=== PATIENT | female | born 1975 | race Caucasian/White ===

== ENCOUNTER 2017-03-30 12:01 | Day surgery (SDC) | payer BC ==
[2017-03-30 12:37] VITALS: BMI 32.3
[2017-03-30] MEDS ORDERED: PROPOFOL 20 ML ONE ×2 (13:29→14:24)
[2017-03-30] MEDS ORDERED: MIDAZOLAM HCL 2 MG/2 ML SINGLE DOSE VIAL ONE ×2 (13:43→14:39)
[2017-03-30] MEDS ORDERED: CLINDAMYCIN PHOSPHATE 600 MG/4 ML VIAL ONE (14:37)
[2017-03-30] MEDS ORDERED: DEXAMETHASONE SOD PHOSPHATE 4 MG/1 ML VIAL ONE ×2 (14:41→14:53)
[2017-03-30] MEDS ORDERED: ONDANSETRON 4 MG/2 ML VIAL ONE ×2 (14:41→14:53)
[2017-03-30] MEDS ORDERED: ONDANSETRON 4 MG/2 ML VIAL IVPUSH PRN (15:42)
[2017-03-30] MEDS ORDERED: oxyCODONE HCL 5 MG TABLET PO PRN ×2 (15:42)
[2017-03-30] MEDS ORDERED: LACTATED RINGERS SOLUTION 1,000 ML IV SCH (15:45)
[2017-03-30] MEDS ORDERED: oxyCODONE HCL 5 MG TABLET ONE (16:30)
[2017-03-30 16:47] VITALS: BP 123/72; PULSE 74
[2017-03-30 16:52] VITALS: TEMP 98
--- NOTE | 2017-03-31 18:33 | OP ---
DATE OF OPERATION: 03/30/2017 PREOPERATIVE DIAGNOSIS: Left hand wound with possible ulnar nerve injury. POSTOPERATIVE DIAGNOSIS: Left hand wound with possible ulnar nerve injury. OPERATIVE PROCEDURE: Left hand wound exploration with decompression and exploration of left ulnar nerve and hand. SURGEON: Hansel Rosales MD BARKEEPER: STEPHANIE James ANESTHESIA: General. COMPLICATIONS: None. ESTIMATED BLOOD LOSS: Minimal. INDICATIONS FOR PROCEDURE: The patient is a 41-year-old female with the above finding, indicated for operative treatment. Risks, benefits, alternatives were discussed with patient at length. Proper informed consent was obtained. Of note, in the holding room, the patient was reexamined and found to have improved sensation in much of the finger except for the small finger, in which he had some diminished sensation over the ulnar aspect of the finger as well as in the palm of the hand distal to the laceration. Other areas had improved significantly. We discussed the options and she decided to proceed with exploration. PROCEDURE: After proper identification of patient and correct operative site, patient brought to the operating room, placed supine on the table, prominences well padded. General anesthesia provided by the anesthesiologist, adequate for procedure. Left upper extremity was prepped and draped in usual sterile fashion, well-padded tourniquet, and sterile prep. Esmarch bandage to exsanguinate left upper extremity. Tourniquet was inflated to 250 mmHg. Patient's laceration was enlarged both proximally and distally using a Noe type of zig-zag incision. The incision as taken sharply through the skin, with blunt and sharp dissection of subcutaneous tissues. The stab wound was found to go quite deep through the hypothenar muscles and the ulnar nerve was found with all of its branches. The area of injury was distal to the motor branch. The branch to the ring and radial aspect of the small finger was found to be intact and the branch to the small finger ulnar aspect was found to have a laceration of the perineural fat but the actual nerve itself was found to be intact completely. This was confirmed by bringing the operative microscope. Therefore, the nerve was decompressed but no repair was necessary. The wound was irrigated with copious amounts of normal saline and repaired using a 5-0 nylon suture. Sterile dressings were applied. The patient was reversed from anesthesia and brought to the recovery room in stable condition. She tolerated the procedure well. Marcellus [id number]
== END 2017-03-30 17:30 | disposition home or self-care (01) ==
LOC: FASU 12:01
PROVIDERS: ATTEND Orthopaedic Surgery Hand Surgery
PROC: 01N40ZZ Release Ulnar Nerve, Open Approach (ICD-10-PCS; principal; 2017-03-30 14:35)
DX: S64.02XA Injury of ulnar nerve at wrist and hand level of left arm, initial encounter (principal); X58.XXXA Exposure to other specified factors, initial encounter; Y93.9 Activity, unspecified; Y92.9 Unspecified place or not applicable
CPT/HCPCS: 84703; 94760